=== PATIENT | female | born 1955 | race Two or more races ===

== ENCOUNTER 2025-05-08 12:29 | Emergency (ER) | payer OTHER ==
[~2025-05-08] VITALS: Ht 160 cm; Wt 73.5 kg
[2025-05-08 12:58] VITALS: BP 121/73; O2SAT 97
[2025-05-08] MEDS ORDERED: ORPHENADRINE CITRATE 30 MG/ML AMPUL IM STA (13:09)
[2025-05-08] MEDS ORDERED: KETOROLAC TROMETHAMINE 30 MG VIAL IM STA (13:09)
[2025-05-08] MEDS ORDERED: DEXAMETHASONE SODIUM PHOSPHATE 4 MG/ML VIAL IM STA (13:09)
[2025-05-08] MEDS ORDERED: NAPROXEN500 MG PO (13:11)
[2025-05-08] MEDS ORDERED: NORFLEX100MG PO (13:11)
[2025-05-08] MEDS ORDERED: ORPHENADRINE CITRATE 30 MG/ML AMPUL ONE (14:00)
[2025-05-08] MEDS ORDERED: DEXAMETHASONE SODIUM PHOSPHATE 4 MG/ML VIAL ONE (14:00)
[2025-05-08] MEDS ORDERED: KETOROLAC TROMETHAMINE 30 MG VIAL ONE (14:00)
== END 2025-05-08 14:16 | disposition home or self-care (01) ==
LOC: ER 12:30
DX: M54.50 Low back pain, unspecified (principal); E78.49 Other hyperlipidemia
CPT/HCPCS: 96372; 99282; J1100; J1885; J2360